=== PATIENT | female | born 1960 | race Caucasian/White ===

== ENCOUNTER 2017-04-17 11:58 | Emergency (ER) | payer SELFPAY ==
--- NOTE | 2017-04-17 12:13 | UC ---
Respiratory Complaint HPI - HPI Summary HPI Summary: 56 YEAR OLD FEMALE PRESENTS WITH COMPLAINS OF COUGH, CHEST CONGESTION, SORE THROAT, AND HEADACHE. - History of Current Complaint Stated Complaint: RESPIRATORY COMPLAINT Time Seen by Provider: 04/17/17 12:12 Hx Last Menstrual Period: 8 yrs - Allergies/Home Medications Allergies/Adverse Reactions: Allergies Allergy/AdvReac Type Severity Reaction Status Date / Time Levofloxacin [From Levaquin] Allergy Airway Verified 04/17/17 12:15 Obstruction Meloxicam Allergy Itching Verified 04/17/17 12:15 Tetracyclines Allergy Anaphylatic Verified 04/17/17 12:15 Shock Home Medications: Home Medications Albuterol 0.5% CONC NEB.JL* 1 mg .SEE ORDER Q6H 04/17/17 [History Confirmed 12/29] Venlafaxine EXT RELEASE CAP* [Effexor Xr CAP*] 150 mg PO DAILY 04/17/17 [ History Confirmed 04/17/17] clonazePAM TAB(*) [Klonopin TAB(*)] 0.5 mg PO BID 04/17/17 [History Confirmed ] PMH/Surg Hx/FS Hx/Imm Hx Previously Healthy: Yes - Surgical History Surgical History: Yes Surgery Procedure, Year, and Place: appy 1980, internal hemmorhoids - Social History Substance Use Type: Prescribed Review of Systems Constitutional: Negative Skin: Negative Eyes: Negative ENT: Nasal Discharge, Sinus Congestion Respiratory: Cough Cardiovascular: Negative Gastrointestinal: Negative Genitourinary: Negative Motor: Negative Neurovascular: Negative Musculoskeletal: Negative Neurological: Negative Psychological: Negative All Other Systems Reviewed And Are Negative: Yes Physical Exam Triage Information Reviewed: Yes Eye Exam: Normal ENT Exam: Normal Dental Exam: Normal Neck exam: Normal Neck: Positive: 1 Respiratory: Positive: Rhonchi, Wheezing Cardiovascular Exam: Normal Abdominal Exam: Normal Musculoskeletal Exam: Normal Neurological Exam: Normal Psychological Exam: Normal Skin Exam: Normal Respiratory Course/Dx - Differential Dx/Diagnosis Provider Diagnoses: BRONCHITIS Discharge - Discharge Plan Condition: Stable Disposition: HOME Prescriptions: Albuterol HFA INHALER* [Ventolin HFA Inhaler*] 2 puff INH Q4H PRN #1 mdi PRN Reason: Wheezing Azithromycin TAB* [Zithromax TAB (Z-FAUSTINO) 250 mg #6 tabs] 2 tab PO .TODAY, THEN 1 DAILY #1 faustino guaiFENesin/CODIEN 100MG-10MG* [Robitussin AC 100Mg-10Mg*] 5 ml PO Q6H PRN #120 ml MDD 20 ML PRN Reason: Cough predniSONE TAB* [Deltasone TAB*] 40 mg PO DAILY #10 tab Patient Education Materials: Acute Bronchitis (ED), Acute Cough (ED) Referrals: Zhanna Clark MD [Primary Care Provider] -
[2017-04-17] MEDS ORDERED: Albuterol/Ipratropium NEB.SOL* Albuterol 2.5 MG/Ipratropium 0.5 MG 3 ML INH ONE (12:14)
[2017-04-17 12:15] VITALS: BP 134/66
[2017-04-17] MEDS ORDERED: predniSONE TAB* 20 MG PO ONE (12:19)
== END 2017-04-17 13:18 | disposition home or self-care (01) ==
LOC: UCCORT 11:58
DX: J40 Bronchitis, not specified as acute or chronic (principal)
CPT/HCPCS: 99202; A9270-GY; G0463; J7512

== ENCOUNTER 2018-02-20 19:57 | Emergency (ER) | payer OTHER ==
[2018-02-20 21:02] VITALS: BP 152/101
--- NOTE | 2018-02-20 21:30 | UC ---
Knee Pain HPI - HPI Summary HPI Summary: 57 yo female tripped about 1 pm today landed on right knee hx total knee replacement at [facility] ast fall c/o right knee and right hip pain - History of Current Complaint Chief Complaint: UCLowerExtremity Stated Complaint: RT KNEE INJ Time Seen by Provider: 02/20/18 21:02 Hx Obtained From: Patient Hx Last Menstrual Period: 8 yrs Onset/Duration: Sudden Onset Severity Initially: Severe Severity Currently: Severe Pain Intensity: 8 Pain Scale Used: 0-10 Numeric Character: Sharp, Aching Aggravating Factor(s): Movement, Weight Bearing Alleviating Factor(s): Nothing Associated Signs And Symptoms: Positive: Negative Able to Bear Weight: Yes - with pain - Allergies/Home Medications Allergies/Adverse Reactions: Allergies Allergy/AdvReac Type Severity Reaction Status Date / Time levofloxacin [From Levaquin] Allergy Airway Verified 02/20/18 21:06 Obstruction meloxicam Allergy Itching Verified 02/20/18 21:06 Tetracyclines Allergy Anaphylatic Verified 02/20/18 21:06 Shock Home Medications: Home Medications Budesonide/Formote 80/4.5(NF) [Symbicort 80/4.5 (NF)] 1 puff INH BID 02/20/18 [ History Confirmed 02/20/18] PMH/Surg Hx/FS Hx/Imm Hx Previously Healthy: Yes - Surgical History Surgical History: Yes Surgery Procedure, Year, and Place: appy 1980, internal hemmorhoids , hysterectomy, b/l knee replacements - Family History Known Family History: Positive: Hypertension - Social History Alcohol Use: None Substance Use Type: Prescribed Smoking Status (MU): Never Smoked Tobacco Review of Systems Constitutional: Negative Skin: Negative Eyes: Negative ENT: Negative Respiratory: Negative Cardiovascular: Negative Gastrointestinal: Negative Genitourinary: Negative Motor: Negative Neurovascular: Negative Musculoskeletal: Arthralgia Neurological: Negative Psychological: Negative Is Patient Immunocompromised?: No All Other Systems Reviewed And Are Negative: Yes Physical Exam Triage Information Reviewed: Yes Appearance: Well-Appearing, No Pain Distress, Well-Nourished Vital Signs: Initial Vital Signs Temp 98.2 F 02/20/18 20:56 Pulse 71 02/20/18 20:56 Resp 18 02/20/18 20:56 BP 152/101 02/20/18 20:56 Pulse Ox 97 02/20/18 20:56 Eye Exam: Normal ENT: Positive: Hearing grossly normal, Uvula midline. Negative: Nasal congestion, Nasal drainage, Trismus, Muffled voice, Hoarse voice Neck: Positive: Supple, Nontender, No Lymphadenopathy Respiratory: Positive: Lungs clear, Normal breath sounds, No respiratory distress, No accessory muscle use Cardiovascular: Positive: RRR, No Murmur Musculoskeletal: Positive: Strength Intact, ROM Intact, No Edema, Other: - tender over patella/no bruising, hold right left externally rotated Neurological: Positive: Alert Psychological Exam: Normal Skin Exam: Normal Diagnostics - Radiology No standard instances Xray Interpretation: No Acute Changes Radiology Interpretation Completed By: Radiologist - huip and knee (R), no fx Knee Pain Course/Dx - Differential Dx/Diagnosis Provider Diagnoses: right hip sprain/right knee contusion Discharge - Sign-Out/Discharge Documenting (check all that apply): Discharge/Admit/Transfer - Discharge Plan Condition: Stable Disposition: HOME Patient Education Materials: Contusion in Adults (ED), Hip Sprain (ED) Referrals: Zhanna Clark MD [Primary Care Provider] - (recheck in 1-2 weeks for bp recheck) Additional Instructions: rest ice use your walker see your orthopedist early this week - Billing Disposition and Condition Condition: STABLE Disposition: Home
--- NOTE | 2018-02-20 21:42 | RAD ---
Indication: RIGHT knee pain post fall today. Comparison: None. Technique: RIGHT knee: AP, lateral, sunrise views. REPORT AND IMPRESSION: Normally located prosthetic RIGHT knee. Negative for joint effusion, periprosthetic fracture, or stigmata of prosthesis loosening. Unremarkable soft tissue contours.
--- NOTE | 2018-02-20 21:44 | RAD ---
Indication: RIGHT hip pain post fall. Comparison: No relevant prior exams available on the [facility] PACS for comparison. Technique: AP pelvis and AP and frog-leg lateral views RIGHT hip. Report: The RIGHT hip is normally located. No proximal femur or pelvic fracture or articular malalignment evident. Osseous metaplasia at the RIGHT greater than LEFT acetabular labrum consistent with degeneration. Negative for significant hip joint space narrowing within limits of nonweightbearing view. Enthesophyte at the insertion site of the RIGHT gluteus gume tendon at the proximal diaphysis of the femur. Unremarkable soft tissue contours accounting for obese body habitus. IMPRESSION: No radiographic evidence for hip fracture. As x-rays may be negative with nondisplaced hip fracture if there is persistent clinical concern MRI or in setting of contraindication to MRI or limitation in emergent access to MRI CT would be suggested.
== END 2018-02-20 22:16 | disposition home or self-care (01) ==
LOC: UCCORT 19:57
DX: S73.101A Unspecified sprain of right hip, initial encounter (principal); S80.01XA Contusion of right knee, initial encounter; Z96.659 Presence of unspecified artificial knee joint; Z88.1 Allergy status to other antibiotic agents; W01.0XXA Fall on same level from slipping, tripping and stumbling without subsequent striking against object, initial encounter; Y92.9 Unspecified place or not applicable
CPT/HCPCS: 99211; G0463

== ENCOUNTER 2019-02-21 12:11 | Emergency (ER) | payer MEDICARE, OTHER ==
[2019-02-21 13:03] VITALS: BP 148/88
[2019-02-21] MEDS ORDERED: Ibuprofen TAB* 600 MG PO ONE (13:14)
--- NOTE | 2019-02-21 13:20 | UC ---
Upper Extremity HPI - HPI Summary HPI Summary: 58-year-old female comes in with a chief complaint of right forearm and elbow pain after tripping and falling just prior to arrival. She fell she fell on her right side she also had some right hip pain. She has been able to walk with hip which is not worried about it being broken. Also struck her right knee. that pain is also minimal she's not worried about any possibility of fracture in the knee. Her proximal right forearm and elbow are swollen and tender to palpation. Pain is also worse with attempted pronation and supination. Does report some numbness and tingling on the palmar surface of the hand. Does have decreased range of motion with elbow flexion and extension and pronation supination. No decreased range of motion or pain in the hand fingers are shoulder. - History of Current Complaint Chief Complaint: UCUpperExtremity Stated Complaint: RIGHT ARM INJURY (FALL) Time Seen by Provider: 02/21/19 13:08 Hx Last Menstrual Period: 8 yrs Pain Intensity: 6 - Allergies/Home Medications Allergies/Adverse Reactions: Allergies Allergy/AdvReac Type Severity Reaction Status Date / Time levofloxacin [From Levaquin] Allergy Airway Verified 02/21/19 13:05 Obstruction meloxicam Allergy Itching Verified 02/21/19 13:05 Tetracyclines Allergy Anaphylatic Verified 02/21/19 13:05 Shock Home Medications: Home Medications Fexofenadine (NF) [Patricia (NF)] 60 mg PO DAILY 02/21/19 [History Confirmed 07/02] Ibuprofen 800 mg PO Q6HR PRN 02/21/19 [History Confirmed 02/21/19] PMH/Surg Hx/FS Hx/Imm Hx Previously Healthy: Yes Endocrine History: Dyslipidemia Respiratory History: Asthma - Surgical History Surgical History: Yes Surgery Procedure, Year, and Place: appy 1980, internal hemmorhoids , hysterectomy, b/l knee replacements - Family History Known Family History: Positive: Hypertension - Social History Alcohol Use: None Substance Use Type: None Smoking Status (MU): Never Smoked Tobacco Review of Systems All Other Systems Reviewed And Are Negative: Yes Constitutional: Positive: Negative Skin: Positive: Other - ABRASION RT FOREARM Eyes: Positive: Negative ENT: Positive: Negative Respiratory: Positive: Negative Cardiovascular: Positive: Negative Gastrointestinal: Positive: Negative Motor: Positive: Decreased ROM Neurovascular: Positive: Other - SEE HPI Musculoskeletal: Positive: Other: - SEE HPI Neurological: Positive: Other - SEE HPI Psychological: Positive: Negative Is Patient Immunocompromised?: No Physical Exam Triage Information Reviewed: Yes Appearance: Well-Appearing, Well-Nourished, Pain Distress - MILD WITH RT FOREARM /ELBOW ROM Vital Signs: Initial Vital Signs Temp 98 F 02/21/19 12:55 Pulse 60 02/21/19 12:55 Resp 16 02/21/19 12:55 BP 148/88 02/21/19 12:55 Pulse Ox 98 02/21/19 12:55 Vital Signs Reviewed: Yes Eye Exam: Normal Neck: Positive: Supple Respiratory: Positive: No respiratory distress Musculoskeletal: Positive: Other: - tHE RIGHT FOREARM IS SWOLLEN AND TENDER TO PALPATION AND ITS PROXIMAL ASPECT. Fingers have full range of motion and are nontender wrist has full range of motion and is nontender. Right shoulder and clavicle are nontender with full range of motion. Patient holds the right elbow at approximately 90 flexion. She has pain with attempted extension and pronation. Normal capillary refill. Patient reports some decreased sensation on the palmar surface of the second third and fourth fingers. Neurological Exam: Normal Neurological: Positive: Alert, Muscle Tone Normal Psychological Exam: Normal Psychological: Positive: Normal Response To Family, Age Appropriate Behavior Skin: Positive: Other - SUPERFICIAL ABRASION RT FOREARM Upper Extremity Course/Dx - Course Course Of Treatment: Patient Name: MINE COFFMAN Medical Record#: [id number] Ordering Physician: Jersey Padilla MD Acct.#: [id number] : 1960 Age: 58 Sex: F Location: [facility] Exam Date: 02/21/191311 ADM Status: REG ER Order Information: FOREARM RIGHT 2 [facility] Accession Number: [id number] CPT: 97280 HISTORY: PAIN RT FOREARM AND ELBOW S/P FALL . COMPARISONS: None relevant available at the time of dictation. VIEWS: 6, Frontal, lateral, and oblique views of the right elbow with frontal and lateral views of the right forearm FINDINGS: BONE DENSITY: Normal. BONES: There is no displaced fracture. There is a small enthesophyte of the olecranon. JOINTS: There is osteoarthritis of the ulnar trochlear and radial-capitellar articulations. There is no posterior supracondylar fat pad to suggest a joint effusion. ALIGNMENT: There is no dislocation. SOFT TISSUES: Unremarkable. OTHER FINDINGS: None. IMPRESSION: OSTEOARTHRITIS. NO ACUTE OSSEOUS INJURY. IF SYMPTOMS PERSIST, RECOMMEND REPEAT IMAGING. <Electronically signed by Flakito Adkins MD in OV> 02/21/19 1401 Patient Name: MINE COFFMAN Medical Record#: [id number] Ordering Physician: Jersey Padilla MD Acct.#: [id number] : 1960 Age: 58 Sex: F Location: [facility] Exam Date: 02/21/191311 ADM Status: REG ER Order Information: ELBOW RIGHT 3+ V[facility] Accession Number: [id number] CPT: 15074 HISTORY: PAIN RT FOREARM AND ELBOW S/P FALL . COMPARISONS: None relevant available at the time of dictation. VIEWS: 6, Frontal, lateral, and oblique views of the right elbow with frontal and lateral views of the right forearm FINDINGS: BONE DENSITY: Normal. BONES: There is no displaced fracture. There is a small enthesophyte of the olecranon. JOINTS: There is osteoarthritis of the ulnar trochlear and radial-capitellar articulations. There is no posterior supracondylar fat pad to suggest a joint effusion. ALIGNMENT: There is no dislocation. SOFT TISSUES: Unremarkable. OTHER FINDINGS: None. IMPRESSION: OSTEOARTHRITIS. NO ACUTE OSSEOUS INJURY. IF SYMPTOMS PERSIST, RECOMMEND REPEAT IMAGING. <Electronically signed by Flakito Adkins MD in OV> 02/21/19 1401 I discussed the x-rays with the patient. At this time the plan is ice anti- inflammatories and range of motion as tolerated. Follow-up with orthopedics if not improved. - Differential Dx/Diagnosis Provider Diagnosis: Contusion of right forearm, Sprain of elbow, right Discharge - Sign-Out/Discharge Documenting (check all that apply): Patient Departure All imaging exams completed and their final reports reviewed: Yes - Discharge Plan Condition: Stable Disposition: HOME Patient Education Materials: Contusion in Adults (ED), Elbow Sprain (ED) Referrals: Racheal Hager MD [Primary Care Provider] - Tahir Monroe MD [Medical Doctor] - Additional Instructions: FOLLOW UP WITH ORTHOPEDICS, DR MONROE, IF NOT COMPLETELY IMPROVED. GET RECHECKED SOONER IF YOUR CONDITION WORSENS OR ANY QUESTIONS OR CONCERNS. - Billing Disposition and Condition Condition: STABLE Disposition: Home
== END 2019-02-21 14:21 | disposition home or self-care (01) ==
LOC: UCCORT 12:11
DX: S53.401A Unspecified sprain of right elbow, initial encounter (principal); W01.0XXA Fall on same level from slipping, tripping and stumbling without subsequent striking against object, initial encounter; S50.11XA Contusion of right forearm, initial encounter; Y92.9 Unspecified place or not applicable; Z88.8 Allergy status to other drugs, medicaments and biological substances
CPT/HCPCS: 99212; A9270-GY; G0463